=== PATIENT | male | born 1935 | race Caucasian/White ===

== ENCOUNTER 2020-11-05 17:18 | Inpatient (IN) | payer MEDICARE ==
[~2020-11-05] VITALS: Ht 167.6 cm; Wt 65.9 kg
[~2020-11-05 17:18] MED LIST: ARICEPT5 MG PO; ASPIR 8181 MG PO; ATORVASTATIN CA80 MG PO; ELIQUIS2.5 MG PO; FLOMAX 0.4 MG0.4 MG PO; LEVETIRACETAM750 MG PO; LEVOTHYROXINE150 MCG PO; LIPITOR20 MG PO; LIPITOR40 MG PO; NITROSTAT 0.40.4 MG SL; PRIMIDONE50 MG PO; SERTRALINE HCL50 MG PO; VIMPAT100 MG PO
[2020-11-08] MEDS ORDERED: LIPITOR80 MG PO (22:28)
[2020-11-09] MEDS ORDERED: VIMPAT10 MG/1 ML PO (14:55)
[2021-02-25] MEDS ORDERED: VIMPAT150 MG PO (13:49)
== END 2020-11-09 16:32 | disposition home or self-care (01) | DRG 101 ==
LOC: PROG CARE 17:18
PROVIDERS: ADMIT Internal Medicine
DX: G40.909 Epilepsy, unspecified, not intractable, without status epilepticus (principal); I13.0 Hypertensive heart and chronic kidney disease with heart failure and stage 1 through stage 4 chronic kidney disease, or unspecified chronic kidney disease; N17.9 Acute kidney failure, unspecified; I50.22 Chronic systolic (congestive) heart failure; R33.9 Retention of urine, unspecified; I48.91 Unspecified atrial fibrillation; I25.10 Atherosclerotic heart disease of native coronary artery without angina pectoris; I12.9 Hypertensive chronic kidney disease with stage 1 through stage 4 chronic kidney disease, or unspecified chronic kidney disease; F03.90 Unspecified dementia, unspecified severity, without behavioral disturbance, psychotic disturbance, mood disturbance, and anxiety; D64.89 Other specified anemias; H90.5 Unspecified sensorineural hearing loss; Z82.49 Family history of ischemic heart disease and other diseases of the circulatory system; Z87.891 Personal history of nicotine dependence; N18.31 Chronic kidney disease, stage 3a; I25.2 Old myocardial infarction
CPT/HCPCS: 36415; 71045; 81001; 83735; 84439; 84443; 85610; 85730; 93005; J7030

== ENCOUNTER 2020-11-12 12:05 | Emergency (ER) | payer MEDICARE ==
[~2020-11-12 12:05] MED LIST changes: +LIPITOR80 MG PO; +VIMPAT10 MG/1 ML PO
[2021-02-25] MEDS ORDERED: VIMPAT150 MG PO (13:49)
== END 2020-11-12 14:50 | disposition home or self-care (01) ==
LOC: ER1 12:05
DX: N40.1 Benign prostatic hyperplasia with lower urinary tract symptoms (principal); R33.8 Other retention of urine; I10 Essential (primary) hypertension; F03.90 Unspecified dementia, unspecified severity, without behavioral disturbance, psychotic disturbance, mood disturbance, and anxiety; Z95.1 Presence of aortocoronary bypass graft
CPT/HCPCS: 51702; 81001; 87086; 99283

== ENCOUNTER 2020-11-29 15:38 | Emergency (ER) | payer MEDICARE ==
[2020-11-29 19:44] LABS: HEMOGLOBIN 14.5 gm/dl (14.0-17.5); RED BLOOD COUNT 4.68 M/UL (4.20-5.50); WHITE BLOOD COUNT 6.2 K/UL (4.5-11.0)
[2021-02-25] MEDS ORDERED: VIMPAT150 MG PO (13:49)
== END 2020-11-30 00:10 | disposition home or self-care (01) ==
LOC: ER1 15:38
PROVIDERS: Preventive Medicine Occupational Medicine
DX: R07.89 Other chest pain (principal); N39.0 Urinary tract infection, site not specified; R33.9 Retention of urine, unspecified; I25.10 Atherosclerotic heart disease of native coronary artery without angina pectoris; Z95.1 Presence of aortocoronary bypass graft; Z20.822 Contact with and (suspected) exposure to COVID-19
CPT/HCPCS: 71045; 80053; 81001; 82550; 82553; 83874; 83880; 84484; 85025; 85652; 86140; 87086; 93005; 99285; J7030; U0002

== ENCOUNTER 2021-01-02 19:41 | Emergency (ER) | payer MEDICARE ==
[2021-02-25] MEDS ORDERED: VIMPAT150 MG PO (13:49)
== END 2021-01-02 22:30 | disposition home or self-care (01) ==
LOC: ER1 19:41
DX: T83.011A Breakdown (mechanical) of indwelling urethral catheter, initial encounter (principal); K59.00 Constipation, unspecified; I10 Essential (primary) hypertension; X58.XXXA Exposure to other specified factors, initial encounter
CPT/HCPCS: 51702; 99283

== ENCOUNTER → 2021-02-25 | Day surgery (SDC) | payer MEDICARE ==
[~2021-02-25] MED LIST changes: +VIMPAT150 MG PO
== END | disposition home or self-care (01) ==
LOC: OR 11:40
DX: N40.1 Benign prostatic hyperplasia with lower urinary tract symptoms (principal); R33.8 Other retention of urine; I13.0 Hypertensive heart and chronic kidney disease with heart failure and stage 1 through stage 4 chronic kidney disease, or unspecified chronic kidney disease; I50.9 Heart failure, unspecified; N18.9 Chronic kidney disease, unspecified; I48.91 Unspecified atrial fibrillation; Z87.891 Personal history of nicotine dependence; Z20.822 Contact with and (suspected) exposure to COVID-19
CPT/HCPCS: J7040; U0002

== ENCOUNTER 2021-09-28 05:43 | Inpatient (IN) | payer MEDICARE, MEDICAID ==
[~2021-09-28] VITALS: Ht 180.3 cm; Wt 45.4 kg
[~2021-09-28 05:43] MED LIST changes: +KEPPRA 500 MG500 MG PO; -LEVETIRACETAM750 MG PO; -LEVOTHYROXINE150 MCG PO; +LEVOTHYROXINE175 MCG PO
[2021-09-28] MEDS ORDERED: DILANTIN100 MG PO (10:07)
[2021-09-28] MEDS ORDERED: FLOMAX 0.4 MG0.4 MG PO (10:08)
[2021-09-28] MEDS ORDERED: TRAZODONE HCL50 MG PO (10:08)
[2021-09-28] MEDS ORDERED: MIRTAZAPINE15 MG PO (10:08)
[2021-09-28] MEDS ORDERED: ATIVAN0.5 MG PO (10:09)
[2021-09-28] MEDS ORDERED: DONEPEZIL HCL10 MG PO (10:09)
[2021-09-28] MEDS ORDERED: HYDROCODON-ACE1 EAC1 PO (10:10)
[2021-09-28] MEDS ORDERED: TYLENOL 8 HOUR650 MG PO (10:11)
[2021-09-28] MEDS ORDERED: FLEET OIL ENEM133 ML PR (10:13)
[2021-09-28] MEDS ORDERED: FOLIC ACID1 MG PO (10:17)
[2021-09-28 11:47] LABS: HEMOGLOBIN 12.7 gm/dl (14.0-17.5); RED BLOOD COUNT 3.83 M/UL (4.20-5.50); WHITE BLOOD COUNT 13.8 K/UL (4.5-11.0)
[2021-09-28 12:27] LABS: BUN/CREATININE RATIO 36 (0-10)
[2021-09-29 02:49] LABS: HEMOGLOBIN 11.3 gm/dl (14.0-17.5)
[2021-09-29 02:53] LABS: RED BLOOD COUNT 3.44 M/UL (4.20-5.50); WHITE BLOOD COUNT 9.8 K/UL (4.5-11.0)
[2021-09-30 02:33] LABS: RED BLOOD COUNT 3.19 M/UL (4.20-5.50)
[2021-09-30 02:34] LABS: WHITE BLOOD COUNT 6.3 K/UL (4.5-11.0)
[2021-09-30 03:07] LABS: BUN/CREATININE RATIO 31 (0-10)
[2021-10-01 08:49] LABS: WHITE BLOOD COUNT 4.9 K/UL (4.5-11.0)
[2021-10-01 08:51] LABS: HEMOGLOBIN 12.2 gm/dl (14.0-17.5); RED BLOOD COUNT 3.75 M/UL (4.20-5.50)
[2021-10-01 10:02] LABS: BUN/CREATININE RATIO 24 (0-10)
[2021-10-01 17:08] LABS: ORGANISM ID Not indicated. (.); SPECIMEN SOURCE Urine (.); STREPTOCOCCUS PNEUMONIAE AG Negative (Negative)
[2021-10-02 11:24] LABS: HEMOGLOBIN 12.5 gm/dl (14.0-17.5); RED BLOOD COUNT 3.89 M/UL (4.20-5.50)
[2021-10-02 11:27] LABS: WHITE BLOOD COUNT 7.6 K/UL (4.5-11.0)
[2021-10-02 12:02] LABS: BUN/CREATININE RATIO 18 (0-10)
[2021-10-03 03:18] LABS: HEMOGLOBIN 10.1 gm/dl (14.0-17.5); RED BLOOD COUNT 3.07 M/UL (4.20-5.50); WHITE BLOOD COUNT 5.1 K/UL (4.5-11.0)
--- NOTE | 2021-10-03 22:43 | NUR ---
192210/03/21 PATIENT AT 192. PATIENT EXPIRATION WAS COMFIRMED BY TWO NURSES (TANIKA PITT RN AND JOMAR COX RN). VOCAL TEACHER AND DOCTOR TATYANA WAS NOTIFIED OF PATIENT PASSING. [facility] WAS CALLED AND PATIENT DID NOT QUALIFY FOR ORGAN DONATION. [facility] IN [place] WAS HOME OF CHOICE PER BEBETO GRIGGS (). PATIENT DISCHARGED WITH HOME AROUND [id number].
== END 2021-10-03 21:29 | disposition expired | DRG 871 ==
LOC: PROG CARE 05:43
PROVIDERS: Internal Medicine; Physician Assistant Medical; ADMIT Internal Medicine
PROC: 5A09457 Assistance with Respiratory Ventilation, 24-96 Consecutive Hours, Continuous Positive Airway Pressure (ICD-10-PCS; principal; 2021-09-28)
PROC: 0DH67UZ Insertion of Feeding Device into Stomach, Via Natural or Artificial Opening (ICD-10-PCS; 2021-09-30)
DX: A41.9 Sepsis, unspecified organism (principal); J69.0 Pneumonitis due to inhalation of food and vomit; J18.9 Pneumonia, unspecified organism; J96.01 Acute respiratory failure with hypoxia; I26.99 Other pulmonary embolism without acute cor pulmonale; E43 Unspecified severe protein-calorie malnutrition; I48.20 Chronic atrial fibrillation, unspecified; I82.452 Acute embolism and thrombosis of left peroneal vein; I82.432 Acute embolism and thrombosis of left popliteal vein; I82.412 Acute embolism and thrombosis of left femoral vein; N17.9 Acute kidney failure, unspecified; R64 Cachexia; Z68.1 Body mass index [BMI] 19.9 or less, adult; Z20.822 Contact with and (suspected) exposure to COVID-19; F03.90 Unspecified dementia, unspecified severity, without behavioral disturbance, psychotic disturbance, mood disturbance, and anxiety; G40.909 Epilepsy, unspecified, not intractable, without status epilepticus; I25.10 Atherosclerotic heart disease of native coronary artery without angina pectoris; I12.9 Hypertensive chronic kidney disease with stage 1 through stage 4 chronic kidney disease, or unspecified chronic kidney disease; E11.22 Type 2 diabetes mellitus with diabetic chronic kidney disease; K74.60 Unspecified cirrhosis of liver; E87.6 Hypokalemia; I65.23 Occlusion and stenosis of bilateral carotid arteries; Z66 Do not resuscitate; E78.5 Hyperlipidemia, unspecified; L89.312 Pressure ulcer of right buttock, stage 2; L89.622 Pressure ulcer of left heel, stage 2; L89.612 Pressure ulcer of right heel, stage 2; L89.152 Pressure ulcer of sacral region, stage 2; E03.9 Hypothyroidism, unspecified; D53.9 Nutritional anemia, unspecified; N40.0 Benign prostatic hyperplasia without lower urinary tract symptoms; N18.30 Chronic kidney disease, stage 3 unspecified; E86.0 Dehydration; Z95.1 Presence of aortocoronary bypass graft; Z93.1 Gastrostomy status; Z79.899 Other long term (current) drug therapy; Z79.52 Long term (current) use of systemic steroids; Z87.891 Personal history of nicotine dependence; Z82.49 Family history of ischemic heart disease and other diseases of the circulatory system; Z99.81 Dependence on supplemental oxygen; Z51.5 Encounter for palliative care; E88.09 Other disorders of plasma-protein metabolism, not elsewhere classified; R65.20 Severe sepsis without septic shock
CPT/HCPCS: ECHO; 36415; 36600; 71045; 78580; 80048; 80053; 80185; 81001; 82550; 82553; 82607; 82746; 82803; 82962; 83036; 83540; 83550; 83605; 83735; 83880; 84100; 84439; 84443; 84484; 85025; 85027; 85610; 85652; 86140; 87040; 87086; 87278; 87899; 93005; 93306; 93970; 94640; 94660; 94664; 94760; A6212; A9540; C9113; J1335; J1650; J1940; J1953; J2060; J2270; J7030